=== PATIENT | male | born 2000 | race Caucasian/White ===

== ENCOUNTER 2021-08-01 23:18 | Emergency (ER) | payer SELFPAY ==
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
[2021-08-01] MEDS ORDERED: Ibuprofen 600 MG Tab PO ONE (23:58)
--- NOTE | 2021-08-02 07:15 | CR ---
Right shoulder: 3 views of the right shoulder were obtained. Comparison: No prior shoulder study is available. Glenohumeral joint appears within normal limits. No fracture, dislocation or other bony abnormality is seen. Distal clavicle is equivocally elevated. Impression: 1. Distal clavicle is equivocally elevated. Please correlate if patient has symptoms to this area to represent minimal acromioclavicular subluxation. If no symptoms are present, this is likely incidental. 2. Right shoulder study is otherwise unremarkable. Diagnostic code #3
== END 2021-08-02 00:11 | disposition home or self-care (01) ==
LOC: JD.ED 23:18
DX: S43.101A Unspecified dislocation of right acromioclavicular joint, initial encounter (principal); F17.220 Nicotine dependence, chewing tobacco, uncomplicated; F17.290 Nicotine dependence, other tobacco product, uncomplicated; X58.XXXA Exposure to other specified factors, initial encounter
CPT/HCPCS: 73030; 99283; A9270

== ENCOUNTER 2025-08-02 18:01 | Emergency (ER) | payer SELFPAY ==
[2025-08-02] MEDS: Fluorescein 1 MG Ophth Strip EYELF ONE (18:50)
== END 2025-08-02 19:10 | disposition home or self-care (01) ==
LOC: JD.ED 18:01
DX: T15.92XA Foreign body on external eye, part unspecified, left eye, initial encounter (principal); Z86.16 Personal history of COVID-19; W22.8XXA Striking against or struck by other objects, initial encounter; Y93.89 Activity, other specified; Y99.0 Civilian activity done for income or pay
CPT/HCPCS: 65205; 99283; A9270; 99284; J3490